=== PATIENT | female | born 1945 | race Caucasian/White ===

== ENCOUNTER 2020-05-10 13:30 | Inpatient (IN) | payer MEDICARE, BC ==
[2020-05-10] MEDS ORDERED: oxyCODONE 5 MG Tab PO PRN (15:00)
[2020-05-10] MEDS ORDERED: Cetirizine 10 MG Tab PO PRN (15:00)
--- NOTE | 2020-05-10 15:11 | PCM.HP.2 ---
H&P History of Present Illness - General Date of Service: 05/10/20 Admit Problem/Dx: Admission Diagnosis/Problem Admission Diagnosis/Problem Carcinoma of duodenum Source of Information: Patient, Family, Old Records History Limitations: Reports: No Limitations - History of Present Illness Initial Comments - Free Text/Narative: Vale is admitted to [facility] on 05/10/2020 after a hospitalization on [place] from 04/26 - 05/10 after a whipple surgery. She is admitted today for rehabilitation. Per Vale, she was in her usual state of health until a few months ago when her hemoglobin dripped from "11 to 7 in a month". She had no obvious source of bleeding. She underwent colonoscopy and upper GI endoscopy as well as capsule endoscopy. She was found to have a duodenal polyp and was scheduled for surgery on 04/26 at [facility] in [place] for removal. During the operation for the polypectomy they noted that she had a duodenal mass that had spread to the head fo the pancreas, frozen section was done on this and was positive for adenocarcinoma and so they spoke to her and it was decided to proceed with a pancreaticoduodenectomy (Whipple procedure). At the time of surgery they also placed a PEG tube for feeding. Reportedly she had some respiratory distress on 04/30 and spent 04/30 - 05/03 in the ICU although did not require intubation. She is no longer requiring tube feeding. She has [address] 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 Prior to this her PMH includes cataracts, cervical radiculopathy and spondylosis s/p cervical fusion, glaucoma, heart murmur, HTN, hyperlipidemia and environmental allergies. Past surgical history includes carpal tunnel release, cataract extraction, cervical fusion, cholecystectomy, hysterectomy, and tubal ligation. 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 They have 3 children and 5 grandchildren. Vale is the only surviving sibling, she had 4 siblings who have all . Abdomen Pain Score (Numeric/FACES): 6 - Related Data Allergies/Adverse Reactions: Allergies Allergy/AdvReac Type Severity Reaction Status Date / Time codeine Allergy Nausea and Verified 05/10/20 13:40 Vomiting Sulfa (Sulfonamide Allergy Hives Verified 05/10/20 13:40 Antibiotics) Home Medications: Home Meds Bimatoprost [LUMIGAN 0.01% Ophth Soln] 1 drop EYEBOTH BEDTIME 05/10/20 [History] Calcium Carbonate/Vitamin D3 [Calcium 600 + D3 Softgel] 1 each PO BIDMEALS 05/10/20 [History] Cetirizine [ZyrTEC] 10 mg PO DAILY PRN 05/10/20 [History] Cholecalciferol (Vitamin D3) [Vitamin D3] 2,000 unit PO DAILY 05/10/20 [History] Docusate Sodium [Colace] 100 mg PO DAILY 05/10/20 [History] Ferrous Sulfate [Feosol] 325 mg PO BID 05/10/20 [History] Losartan/Hydrochlorothiazide [Losartan-HCTZ 50-12.5 MG] 1 tab PO DAILY 05/10/20 [History] Metoprolol Succinate [Toprol XL] 25 mg PO DAILY 05/10/20 [History] Multivitamin [Multivitamins] 1 tab PO BID 05/10/20 [History] Omeprazole 40 mg PO DAILY 05/10/20 [History] atorvaSTATin [Lipitor] 10 mg PO BEDTIME 05/10/20 [History] oxyCODONE 5 mg PO Q6HR PRN 05/10/20 [History] Past Medical History HEENT History: Reports: Glaucoma, Impaired Vision Cardiovascular History: Reports: Heart Murmur, Hypertension Respiratory History: Reports: Intubation, Previous Gastrointestinal History: Reports: Cholelithiasis, Diverticulosis, GERD, GI Bleed, Hemorrhoids, Hiatal Hernia Genitourinary History: Reports: None [employer] History: Reports: Musculoskeletal History: Reports: None Neurological History: Reports: None Psychiatric History: Reports: None Endocrine/Metabolic History: Reports: None Hematologic History: Reports: Bleeding Disorder Oncologic (Cancer) History: Reports: Other (See Below) Other Oncologic History: duodonum, small intenstine, stomach, pancreas Dermatologic History: Reports: None - Infectious Disease History Infectious Disease History: Reports: Chicken Pox, Mumps - Past Surgical History HEENT Surgical History: Reports: None Cardiovascular Surgical History: Reports: None Respiratory Surgical History: Reports: None GI Surgical History: Reports: Cholecystectomy, Colonoscopy, EGD, Polypectomy Female Surgical History: Reports: Hysterectomy, Salpingo-Oophorectomy, Tubal Ligation Endocrine Surgical History: Reports: None Neurological Surgical History: Reports: C-Spine Musculoskeletal Surgical History: Reports: Carpal Tunnel Oncologic Surgical History: Reports: None Dermatological Surgical History: Reports: None Social & Family History - Family History Family Medical History: Noncontributory - Tobacco Use Smoking Status *Q: Never Smoker Second Hand Smoke Exposure: No - Caffeine Use Caffeine Use: Reports: Coffee, Soda, Tea - Recreational Drug Use Recreational Drug Use: No H&P Review of Systems - Review of Systems: Review Of Systems: Comprehensive ROS is negative, except as noted in HPI. Exam - Exam Exam: See Below - Vital Signs Vital Signs: Last Vital Signs Temp 98.3 F 05/10/20 13:40 Pulse 80 05/10/20 13:40 Resp 16 05/10/20 13:40 BP 144/79 H 05/10/20 13:40 Pulse Ox 98 05/10/20 13:40 Weight: 161 lb - Exam General: Alert, Oriented, Cooperative HEENT: Conjunctiva Clear Neck: Supple Lungs: Clear to Auscultation, Normal Respiratory Effort Cardiovascular: Regular Rate, Regular Rhythm, Systolic Murmur GI/Abdominal Exam: Normal Bowel Sounds, Other (Vertical camila, nursing counted 46, no evidence of infection. She has a PEG tube in place, dressing C/D/I, two drains in place.) Extremities: Normal Inspection, No Pedal Edema Sepsis Event Note - Evaluation Sepsis Screening Result: No Definite Risk - Focused Exam Vital Signs: Vital Signs Temp Pulse Resp BP Pulse Ox 05/10/20 13:40 98.3 F 80 16 144/79 H 98 Date Exam was Performed: 05/10/20 Time Exam was Performed: 15:15 - Problem List (1) Anemia SNOMED Code(s): 479571460 ICD Code: D64.9 - ANEMIA, UNSPECIFIED Status: Acute Current Visit: Yes (2) Acid reflux SNOMED Code(s): 917469046 ICD Code: K21.9 - GASTRO-ESOPHAGEAL REFLUX DISEASE WITHOUT ESOPHAGITIS Status: Acute Current Visit: Yes (3) Hypertension SNOMED Code(s): 68743478 ICD Code: I10 - ESSENTIAL (PRIMARY) HYPERTENSION Status: Acute Current Visit: Yes (4) Hyperlipidemia SNOMED Code(s): 74400882 ICD Code: E78.5 - HYPERLIPIDEMIA, UNSPECIFIED Status: Acute Current Visit: Yes (5) Glaucoma SNOMED Code(s): 29123418 ICD Code: H40.9 - UNSPECIFIED GLAUCOMA Status: Acute Current Visit: Yes (6) Constipation SNOMED Code(s): 34748896 ICD Code: K59.00 - CONSTIPATION, UNSPECIFIED Status: Acute Current Visit: Yes (7) Pain SNOMED Code(s): 35612294 ICD Code: R52 - PAIN, UNSPECIFIED Status: Acute Current Visit: Yes (8) Physical deconditioning SNOMED Code(s): 23279068440384 ICD Code: R53.81 - OTHER MALAISE Status: Acute Current Visit: Yes Problem List Initiated/Reviewed/Updated: Yes Orders Last 24hrs: Active Orders 24 hr Category Date Time Status Patient Status [ADT] Routine ADT 05/10/20 14:57 Ordered Height and Weight [RC] We@0700 Care 05/10/20 13:30 Active Intake and Output [RC] QSHIFT Care 05/10/20 13:30 Active Oxygen Therapy [RC] PRN Care 05/10/20 13:19 Active Oxygen Therapy [RC] PRN Care 05/10/20 14:57 Ordered Up With Assistance [RC] ASDIRECTED Care 05/10/20 13:29 Active VTE/DVT Education [RC] PER UNIT ROUTINE Care 05/10/20 13:19 Active VTE/DVT Education [RC] PER UNIT ROUTINE Care 05/10/20 14:57 Ordered Vital Signs [RC] 0700,1900 Care 05/10/20 13:19 Active Vital Signs [RC] Q4H Care 05/10/20 14:57 Ordered Consult to Case Management/Linoleum Layer [CONS] Cons 05/10/20 13:29 Active Routine PT Evaluation and Treatment [CONS] Routine Cons 05/10/20 13:29 Active Regular Diet [DIET] Diet 05/10/20 Dinner Active CBC WITH AUTO DIFF [HEME] AM Lab 05/12/20 05:11 Ordered COMPREHENSIVE METABOLIC PN,CMP [CHEM] AM Lab 05/12/20 05:11 Ordered Bimatoprost [LUMIGAN 0.01% Ophth Soln] Med 05/10/20 21:00 Ordered 1 drop EYEBOTH BEDTIME Calcium Carbonate/Vitamin D3 [Calcium 600 + Vit D 400 Med 05/10/20 18:00 Ordered Softgl] 1 each PO BIDMEALS Cetirizine [ZyrTEC] Med 05/10/20 15:00 Ordered 10 mg PO DAILY PRN Cholecalciferol (Vitamin D3) [Vitamin D3] Med 05/11/20 09:00 Ordered 2,000 unit PO DAILY Docusate Sodium [Colace] Med 05/11/20 09:00 Ordered 100 mg PO DAILY Enoxaparin [Lovenox] Med 05/11/20 09:00 Ordered 40 mg SUBCUT DAILY Ferrous Sulfate Med 05/10/20 21:00 Ordered 325 mg PO BID Losartan/Hydrochlorothiazide Med 05/11/20 09:00 Ordered 1 tab PO DAILY Metoprolol Succinate [Toprol XL] Med 05/11/20 09:00 Ordered 25 mg PO DAILY Multivitamin [Multivitamins] Med 05/10/20 21:00 Ordered 1 tab PO BID Omeprazole [Omeprazole] Med 05/11/20 09:00 Ordered 40 mg PO DAILY atorvaSTATin [Lipitor] Med 05/10/20 21:00 Ordered 10 mg PO BEDTIME oxyCODONE Med 05/10/20 15:00 Ordered 5 mg PO Q6HR PRN Resuscitation Status Routine Resus Stat 05/10/20 13:18 Ordered Medication Orders Atorvastatin Calcium (Lipitor) 10 mg PO BEDTIME [facility] Cetirizine HCl (Zyrtec) 10 mg PO DAILY PRN PRN Reason: Allergies Docusate Sodium (Colace) 100 mg PO DAILY [facility] Enoxaparin Sodium (Lovenox) 40 mg SUBCUT DAILY [facility] Ferrous Sulfate (Ferrous Sulfate) 325 mg PO BID [facility] Metoprolol Succinate (Toprol Xl) 25 mg PO DAILY [facility] Non-Formulary Medication (Bimatoprost [Lumigan 0.01% [facility]]) 1 drop EYEBOTH BEDTIME [facility] Non-Formulary Medication (Calcium Carbonate/Vitamin D3 [Calcium 600 + Vit D 400 Softgl]) 1 each PO BIDMEALS [facility] Non-Formulary Medication (Cholecalciferol (Vitamin D3) [Vitamin D3]) 2,000 unit PO DAILY [facility] Non-Formulary Medication (Losartan/Hydrochlorothiazide) 1 tab PO DAILY [facility] Non-Formulary Medication (Multivitamin [Multivitamins]) 1 tab PO BID [facility] Non-Formulary Medication (Omeprazole [Omeprazole]) 40 mg PO DAILY [facility] Oxycodone HCl (Oxycodone) 5 mg PO Q6HR PRN PRN Reason: Pain Assessment/Plan Comment:: Admission Diagnoses and Plan: Duodenal Cancer IIb T4, 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 Wong at [facility] in [place] Drains not able to be removed per patient "until there is no drainage for 2 consecutive days Deconditioning secondary to above PT eval and treat Pain secondary to #1 Oxycodone 5 mg PO q 6 hours scheduled Anemia secondary to blood loss as well as iron deficiency Ferrous Sulfate BID Constipation secondary to narcotic use Daily colace Senna PRN Secondary Diagnoses and Plan: HTN Continue Losartan/HCTZ Continue metoprolol Hyperlipidemia Continue atorvastatin Seasonal allergies Continue Zyrtec Glaucoma Continue Bimatoprost Acid Reflux Continue omeprazole DVT prophylaxis: Ambulation, enoxaparin 40 mg subcut daily Stress ulcer prophylaxis: Continue home omeprazole Regular Diet as tolerated
[2020-05-10] MEDS ORDERED: oxyCODONE 5 MG Tab PO ONE (18:24)
[2020-05-10] MEDS: Ferrous Sulfate 325 MG Tab PO SCH (21:13)
[2020-05-10] MEDS: Multivitamins with Minerals/Iron/Folic Acid/Lycopene Tab PO SCH (21:13)
[2020-05-10] MEDS: atorvaSTATin 10 MG Tab PO SCH (21:13)
[2020-05-10] MEDS: Calcium Carbonate 600 MG Tab PO SCH (21:13)
[2020-05-10] MEDS: Acetaminophen 325 MG Tab PO PRN (21:14)
[2020-05-10] MEDS: oxyCODONE 5 MG Tab PO PRN (22:44)
[2020-05-11] MEDS: Menthol 7.6 MG Sugar Free Lozenge PO PRN ×2 (00:47→22:03)
[2020-05-11] MEDS: oxyCODONE 5 MG Tab PO PRN ×3 (05:32→18:54)
[2020-05-11] MEDS: Cholecalciferol (Vitamin D3) 25 MCG Tab PO SCH (08:44)
[2020-05-11] MEDS: Enoxaparin 40 MG/0.4 ML Syringe SUBCUT SCH (08:44)
[2020-05-11] MEDS: Losartan 50 MG Tab PO SCH (08:45)
[2020-05-11] MEDS: Omeprazole 20 MG Cap.CR PO SCH (08:45)
[2020-05-11] MEDS: Hydrochlorothiazide 12.5 MG Cap PO SCH (08:45)
[2020-05-11] MEDS: Calcium Carbonate 600 MG Tab PO SCH ×2 (08:45→21:28)
[2020-05-11] MEDS: Metoprolol Succinate 25 MG Tab.ER PO SCH (08:45)
[2020-05-11] MEDS: Ferrous Sulfate 325 MG Tab PO SCH ×2 (08:45→21:28)
[2020-05-11] MEDS: Multivitamins with Minerals/Iron/Folic Acid/Lycopene Tab PO SCH ×2 (08:46→21:29)
[2020-05-11] MEDS: Docusate Sodium 100 MG Cap PO SCH (08:46)
[2020-05-11] MEDS: atorvaSTATin 10 MG Tab PO SCH (21:28)
[2020-05-11] MEDS: Latanoprost 0.005% Ophth Soln 2.5 ML Bottle EYEBOTH SCH (21:30)
[2020-05-12] MEDS: oxyCODONE 5 MG Tab PO PRN ×5 (01:12→22:40)
[2020-05-12] MEDS ORDERED: Bisacodyl 10 MG Supp RECTAL PRN (06:26)
[2020-05-12] MEDS: Cholecalciferol (Vitamin D3) 25 MCG Tab PO SCH (08:10)
[2020-05-12] MEDS: Enoxaparin 40 MG/0.4 ML Syringe SUBCUT SCH (08:10)
[2020-05-12] MEDS: Losartan 50 MG Tab PO SCH (08:10)
[2020-05-12] MEDS: Multivitamins with Minerals/Iron/Folic Acid/Lycopene Tab PO SCH ×2 (08:10→21:16)
[2020-05-12] MEDS: Omeprazole 20 MG Cap.CR PO SCH (08:11)
[2020-05-12] MEDS: Docusate Sodium 100 MG Cap PO SCH (08:11)
[2020-05-12] MEDS: Calcium Carbonate 600 MG Tab PO SCH ×2 (08:12→21:13)
[2020-05-12] MEDS: Ferrous Sulfate 325 MG Tab PO SCH ×2 (08:12→21:13)
[2020-05-12] MEDS: Metoprolol Succinate 25 MG Tab.ER PO SCH (08:12)
[2020-05-12] MEDS: Hydrochlorothiazide 12.5 MG Cap PO SCH (08:12)
[2020-05-12 08:36] LABS: ANION GAP 11.5 mmol/L (5-15); CHLORIDE,CL 100 mmol/L (98-115); SODIUM,NA 136 mmol/L (136-145)
[2020-05-12] MEDS ORDERED: Losartan 50 MG Tab PO SCH ×2 (09:15→10:00)
[2020-05-12] MEDS ORDERED: Hydrochlorothiazide 12.5 MG Cap PO SCH (10:00)
[2020-05-12] MEDS: Naloxegol Oxalate 25 MG Tab PO SCH (10:29)
--- NOTE | 2020-05-12 11:46 | PCM.PN ---
- General Info Date of Service: 05/12/20 Admission Dx/Problem (Free Text): Admission Diagnosis/Problem Admission Diagnosis/Problem Carcinoma of duodenum - Review of Systems Systems Review Comment:: Vale is seen today on swing[facility] rounds. She was admitted on 05/10 for ongoing rehabilitation after a Whipple procedure, done 04/26 due duodenal cancer with spread to the head of the pancreas. She has oxycodone 5-10 mg PO q 6 hours scheduled but 5 "just doesn't cut it". She also had not had a bowel movement since 05/07 and and had a suppository with some results today. She overall feels she is doing pretty well. Per nursing report she had increased output from her drains last evening. Her BP has been running high, 140-170's systolic. - Patient Data Vitals - Most Recent: Last Vital Signs Temp 98.2 F 05/12/20 06:49 Pulse 99 05/12/20 08:12 Resp 20 05/12/20 06:49 BP 132/71 05/12/20 10:29 Pulse Ox 97 05/12/20 06:49 Weight - Most Recent: 161 lb I&O - Last 24 Hours: Intake & Output 05/11/20 05/12/20 05/12/20 22:59 06:59 14:59 Intake Total 1700 120 Output Total 1023 1565 Balance 677 -1445 Lab Results Last 24 Hours: Laboratory Results - last 24 hr 05/12/20 05/12/20 Range/Units 07:17 07:17 WBC 11.95 H (5.00-10.00) 10^3/uL RBC 3.72 L (3.80-5.50) 10^6/uL Hgb 10.3 L (12.0-16.0) g/dL Hct 32.1 L (37.0-47.0) % MCV 86.3 (82.0-92.0) fL MCH 27.7 (27.0-31.0) pg MCHC 32.1 (32.0-36.0) g/dL RDW 14.8 H (11.5-14.5) % Plt Count 480 H (150-400) 10^3/uL MPV 9.9 (7.4-10.4) fL Immature Gran % (Auto) 0.7 (0.0-5.0) % Neut % (Auto) 81.6 H (50.0-70.0) % Lymph % (Auto) 7.7 L (20.0-40.0) % Charlton % (Auto) 8.5 H (2.0-8.0) % Eos % (Auto) 1.1 (1.0-3.0) % Baso % (Auto) 0.4 (0.0-1.0) % Neut # (Auto) 9.76 H (2.50-7.00) 10^3/uL Lymph # (Auto) 0.92 L (1.00-4.00) 10^3/uL Charlton # (Auto) 1.01 H (0.10-0.80) 10^3/uL Eos # (Auto) 0.13 (0.10-0.30) 10^3/uL Baso # (Auto) 0.05 (0.00-0.10) 10^3/uL Immature Gran # (Auto) 0.08 (0.00-0.50) 10^3/uL Sodium 136 (136-145) mmol/L Potassium 3.5 (3.3-5.3) mmol/L Chloride 100 (98-115) mmol/L Carbon Dioxide 28.0 (21.0-32.0) mmol/L Anion Gap 11.5 (5-15) mmol/L BUN 7 (6-25) mg/dL Creatinine 0.64 (0.51-1.17) mg/dL Est Cr Clr Drug Dosing 62.84 mL/min Estimated GFR (MDRD) > 60 mL/min Glucose 131 H (75 - 99) mg/dL Calcium 8.4 L (8.7-10.3) mg/dL Total Bilirubin 0.2 (0.2-1.0) mg/dL AST 14 L (15-37) U/L ALT 27 (12-78) U/L Alkaline Phosphatase 104 (46-116) IU/L Total Protein 5.8 L (6.4-8.2) g/dL Albumin 2.02 L (3.00-4.80) g/dL Deonte Results Last 24 Hours: Microbiology 05/10/20 21:30 Gram Stain - Final Other 05/10/20 21:20 Gram Stain - Final Wound - Incision 05/10/20 21:25 Gram Stain - Final Wound - Abdomen Med Orders - Current: Current Medications Acetaminophen (Tylenol) 650 mg PO Q4H PRN PRN Reason: Pain Last Admin: 05/10/20 21:14 Dose: 650 mg Documented by: Atorvastatin Calcium (Lipitor) 10 mg PO BEDTIME [facility] Last Admin: 05/11/20 21:28 Dose: 10 mg Documented by: Bisacodyl (Dulcolax) 10 mg RECTAL DAILY PRN PRN Reason: Constipation Last Admin: 05/12/20 07:31 Dose: 10 mg Documented by: Calcium Carbonate/Glycine (Calcium Carbonate) 600 mg PO BID [facility] Last Admin: 05/12/20 08:12 Dose: 600 mg Documented by: Cetirizine HCl (Zyrtec) 10 mg PO DAILY PRN PRN Reason: Allergies Cholecalciferol (Vitamin D3) 50 mcg PO DAILY [facility] Last Admin: 05/12/20 08:10 Dose: 50 mcg Documented by: Docusate Sodium (Colace) 100 mg PO DAILY [facility] Last Admin: 05/12/20 08:11 Dose: 100 mg Documented by: Enoxaparin Sodium (Lovenox) 40 mg SUBCUT DAILY [facility] Last Admin: 05/12/20 08:10 Dose: 40 mg Documented by: Ferrous Sulfate (Ferrous Sulfate) 325 mg PO BID [facility] Last Admin: 05/12/20 08:12 Dose: 325 mg Documented by: Hydrochlorothiazide (Hydrochlorothiazide) 25 mg PO DAILY [facility] Latanoprost (Xalatan 0.005% Ophth Soln) 0 ml EYEBOTH BEDTIME [facility] Last Admin: 05/11/20 21:30 Dose: 1 drop Documented by: Losartan Potassium (Cozaar) 100 mg PO DAILY [facility] Menthol (Rembrandt Sugar Free) 1 tavares PO ASDIRECTED PRN PRN Reason: Sore Throat Last Admin: 05/11/20 22:03 Dose: 1 tavares Documented by: Metoprolol Succinate (Toprol Xl) 25 mg PO DAILY [facility] Last Admin: 05/12/20 08:12 Dose: 25 mg Documented by: Multivitamins/Minerals (Centrum) 1 tab PO BID [facility] Last Admin: 05/12/20 08:10 Dose: 1 tab Documented by: Naloxegol (Movantik) 25 mg PO DAILY [facility] Last Admin: 05/12/20 10:29 Dose: 25 mg Documented by: Omeprazole (Omeprazole) 40 mg PO DAILY [facility] Last Admin: 05/12/20 08:11 Dose: 40 mg Documented by: Oxycodone HCl (Oxycodone) 5 - 10 mg PO Q6H PRN PRN Reason: Pain Last Admin: 05/12/20 08:48 Dose: 5 mg Documented by: Senna/Docusate Sodium (Senna Plus) 1 tab PO DAILY PRN PRN Reason: Constipation Last Admin: 05/11/20 21:28 Dose: 1 tab Documented by: Discontinued Medications Hydrochlorothiazide (Hydrochlorothiazide) 12.5 mg PO DAILY [facility] Last Admin: 05/12/20 08:12 Dose: 12.5 mg Documented by: Hydrochlorothiazide (Hydrochlorothiazide) 12.5 mg PO ONETIME [facility] Stop: 05/12/20 11:00 Last Admin: 05/12/20 10:29 Dose: 12.5 mg Documented by: Losartan Potassium (Cozaar) 50 mg PO DAILY [facility] Last Admin: 05/12/20 08:10 Dose: 50 mg Documented by: Losartan Potassium (Cozaar) 100 mg PO DAILY [facility] Last Admin: 05/12/20 10:02 Dose: Not Given Documented by: Losartan Potassium (Cozaar) 50 mg PO ONETIME [facility] Stop: 05/12/20 11:00 Last Admin: 05/12/20 10:29 Dose: 50 mg Documented by: Oxycodone HCl (Oxycodone) 5 mg PO Q6HR PRN PRN Reason: Pain Last Admin: 05/10/20 15:36 Dose: 5 mg Documented by: Oxycodone HCl (Oxycodone) 5 mg PO ONETIME ONE Stop: 05/10/20 18:25 Last Admin: 05/10/20 18:41 Dose: 5 mg Documented by: - Exam General: Alert, Oriented, Cooperative, No Acute Distress Lungs: Clear to Auscultation Cardiovascular: Regular Rate, Regular Rhythm, No Murmurs GI/Abdominal Exam: Normal Bowel Sounds, Other (Drains in place. G-J tube in place. ) Extremities: Normal Inspection, No Pedal Edema Wound/Incisions: Healing Well, No Drainage Sepsis Event Note - Evaluation Sepsis Screening Result: No Definite Risk - Focused Exam Vital Signs: Vital Signs Temp Pulse Pulse Resp BP BP Pulse Ox 05/12/20 10:29 132/71 05/12/20 08:12 99 149/86 H 05/12/20 08:10 149/86 H 05/12/20 06:49 98.2 F 82 20 168/86 H 97 Date Exam was Performed: 05/12/20 Time Exam was Performed: 11:38 - Problem List & Annotations (1) Anemia SNOMED Code(s): 602564480 Code(s): D64.9 - ANEMIA, UNSPECIFIED Status: Acute Current Visit: Yes (2) Acid reflux SNOMED Code(s): 403706296 Code(s): K21.9 - GASTRO-ESOPHAGEAL REFLUX DISEASE WITHOUT ESOPHAGITIS Status: Acute Current Visit: Yes (3) Hypertension SNOMED Code(s): 65887426 Code(s): I10 - ESSENTIAL (PRIMARY) HYPERTENSION Status: Acute Current Visit: Yes (4) Hyperlipidemia SNOMED Code(s): 30886105 Code(s): E78.5 - HYPERLIPIDEMIA, UNSPECIFIED Status: Acute Current Visit: Yes (5) Glaucoma SNOMED Code(s): 99494060 Code(s): H40.9 - UNSPECIFIED GLAUCOMA Status: Acute Current Visit: Yes (6) Constipation SNOMED Code(s): 62404038 Code(s): K59.00 - CONSTIPATION, UNSPECIFIED Status: Acute Current Visit: Yes (7) Pain SNOMED Code(s): 34059150 Code(s): R52 - PAIN, UNSPECIFIED Status: Acute Current Visit: Yes (8) Physical deconditioning SNOMED Code(s): 12811992471031 Code(s): R53.81 - OTHER MALAISE Status: Acute Current Visit: Yes - Problem List Review Problem List Initiated/Reviewed/Updated: Yes - My Orders Last 24 Hours: My Active Orders 05/11/20 21:00 Latanoprost [Xalatan 0.005% Ophth Soln] 0 ml EYEBOTH BEDTIME 05/12/20 06:26 bisacodyL [Dulcolax] 10 mg RECTAL DAILY PRN 05/12/20 09:15 Naloxegol Oxalate [Movantik] 25 mg PO DAILY 05/12/20 11:36 Communication Order [RC] DAILY 05/13/20 09:00 Losartan [Cozaar] 100 mg PO DAILY hydroCHLOROthiazide 25 mg PO DAILY - Plan Plan:: Admission Diagnoses and Plan: Duodenal Cancer IIb T4, 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 Wong at [facility] in [place] Drains not able to be removed per patient "until there is no drainage for 2 consecutive days Incision is healing nicely, camila have been in place for 17 days, will remove today (05/12) This serves as an order for home health referral. Vale is homebound due to post-surgical status. She has a need for [facility] to help manage drains and G-J tube as well as monitor incision site and also monitor blood pressure as changes to her home regimen were made during hospitalization. Deconditioning secondary to above PT eval and treat Pain secondary to #1 Oxycodone 5-10 mg PO q 6 hours scheduled Anemia secondary to blood loss as well as iron deficiency Ferrous Sulfate BID Constipation secondary to narcotic use Daily colace Senna PRN Will add Movantik 25 mg PO daily today (05/12/2020) Secondary Diagnoses and Plan: HTN Continue Losartan/HCTZ, will increase from 50/12.5 to 100/25 PO daily (05/12/2020) Continue metoprolol Hyperlipidemia Continue atorvastatin Seasonal allergies Continue Zyrtec Glaucoma Continue Bimatoprost Acid Reflux Continue omeprazole DVT prophylaxis: Ambulation, enoxaparin 40 mg subcut daily Stress ulcer prophylaxis: Continue home omeprazole Regular Diet as tolerated Anticipate discharge to home with home health on 05/15/2020
[2020-05-12] MEDS: Acetaminophen 325 MG Tab PO PRN ×2 (13:55→21:14)
[2020-05-12] MEDS: atorvaSTATin 10 MG Tab PO SCH (21:14)
[2020-05-12] MEDS: Latanoprost 0.005% Ophth Soln 2.5 ML Bottle EYEBOTH SCH (21:18)
[2020-05-13] MEDS: oxyCODONE 5 MG Tab PO PRN ×5 (05:02→23:21)
[2020-05-13] MEDS: Calcium Carbonate 600 MG Tab PO SCH ×3 (08:22→21:04)
[2020-05-13] MEDS: Cholecalciferol (Vitamin D3) 25 MCG Tab PO SCH (08:22)
[2020-05-13] MEDS: Omeprazole 20 MG Cap.CR PO SCH (08:23)
[2020-05-13] MEDS: Ferrous Sulfate 325 MG Tab PO SCH ×3 (08:23→21:05)
[2020-05-13] MEDS: Docusate Sodium 100 MG Cap PO SCH (08:24)
[2020-05-13] MEDS: Metoprolol Succinate 25 MG Tab.ER PO SCH (08:25)
[2020-05-13] MEDS: Losartan 50 MG Tab PO SCH (08:25)
[2020-05-13] MEDS: Hydrochlorothiazide 25 MG Tab PO SCH (08:25)
[2020-05-13] MEDS: Multivitamins with Minerals/Iron/Folic Acid/Lycopene Tab PO SCH ×3 (08:26→21:04)
[2020-05-13] MEDS: Naloxegol Oxalate 25 MG Tab PO SCH (08:26)
[2020-05-13] MEDS: Enoxaparin 40 MG/0.4 ML Syringe SUBCUT SCH (08:26)
[2020-05-13] MEDS: Acetaminophen 325 MG Tab PO PRN (11:44)
[2020-05-13] MEDS: atorvaSTATin 10 MG Tab PO SCH ×2 (20:30→21:05)
[2020-05-13] MEDS: Latanoprost 0.005% Ophth Soln 2.5 ML Bottle EYEBOTH SCH (21:08)
[2020-05-13] MEDS ORDERED: hydrALAZINE 10 MG Tab PO ONE (21:56)
[2020-05-14] MEDS: Acetaminophen 325 MG Tab PO PRN ×2 (01:55→18:03)
[2020-05-14] MEDS ORDERED: Metoprolol Succinate 25 MG Tab.ER PO ONE (02:26)
[2020-05-14] MEDS: oxyCODONE 5 MG Tab PO PRN ×4 (04:37→21:00)
[2020-05-14] MEDS: Naloxegol Oxalate 25 MG Tab PO SCH (08:06)
[2020-05-14] MEDS: Hydrochlorothiazide 25 MG Tab PO SCH (08:06)
[2020-05-14] MEDS: Omeprazole 20 MG Cap.CR PO SCH (08:07)
[2020-05-14] MEDS: Metoprolol Succinate 25 MG Tab.ER PO SCH (08:07)
[2020-05-14] MEDS: Losartan 50 MG Tab PO SCH (08:08)
[2020-05-14] MEDS: Cholecalciferol (Vitamin D3) 25 MCG Tab PO SCH (08:08)
[2020-05-14] MEDS: Ferrous Sulfate 325 MG Tab PO SCH ×2 (08:09→20:45)
[2020-05-14] MEDS: Calcium Carbonate 600 MG Tab PO SCH ×2 (08:09→20:45)
[2020-05-14] MEDS: Multivitamins with Minerals/Iron/Folic Acid/Lycopene Tab PO SCH ×2 (08:09→20:45)
[2020-05-14] MEDS: Docusate Sodium 100 MG Cap PO SCH (08:09)
[2020-05-14] MEDS: Enoxaparin 40 MG/0.4 ML Syringe SUBCUT SCH (08:13)
[2020-05-14] MEDS: atorvaSTATin 10 MG Tab PO SCH (20:45)
[2020-05-14] MEDS: Latanoprost 0.005% Ophth Soln 2.5 ML Bottle EYEBOTH SCH (20:46)
[2020-05-15] MEDS: oxyCODONE 5 MG Tab PO PRN (01:57)
[2020-05-15] MEDS: Multivitamins with Minerals/Iron/Folic Acid/Lycopene Tab PO SCH ×2 (08:13→08:55)
[2020-05-15] MEDS: Omeprazole 20 MG Cap.CR PO SCH (08:14)
[2020-05-15] MEDS: Calcium Carbonate 600 MG Tab PO SCH ×2 (08:14→08:54)
[2020-05-15] MEDS: Naloxegol Oxalate 25 MG Tab PO SCH (08:14)
[2020-05-15] MEDS: Ferrous Sulfate 325 MG Tab PO SCH (08:14)
[2020-05-15] MEDS: Docusate Sodium 100 MG Cap PO SCH (08:15)
[2020-05-15] MEDS: Cholecalciferol (Vitamin D3) 25 MCG Tab PO SCH (08:15)
[2020-05-15] MEDS: Losartan 50 MG Tab PO SCH (08:18)
[2020-05-15] MEDS: Hydrochlorothiazide 25 MG Tab PO SCH (08:18)
[2020-05-15] MEDS ORDERED: Metoprolol Succinate 50 MG Tab.ER PO SCH (09:00)
--- NOTE | 2020-05-15 09:56 | PCM.DCSUM1 ---
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 Wong at [facility] in [place] Drains not able to be removed per patient "until there is no drainage for 2 consecutive days Incision is healing nicely, camila have been in place for 17 days and were removed on 05/12/2020 She has been instructed on care of her G-J tube for daily flushes of free water and she has been instructed on emptying her drains This serves as an order for home health referral. Vale is homebound due to post-surgical status. She has a need for senior living to help manage drains and G-J tube as well as monitor incision site and also monitor blood pressure as changes to her home regimen were made during hospitalization. Deconditioning secondary to above She has improved since admission Pain secondary to #1 Oxycodone 5-10 mg PO q 6 hours scheduled Anemia secondary to blood loss as well as iron deficiency Ferrous Sulfate BID Constipation secondary to narcotic use Daily colace Senna PRN Will add Movantik 25 mg PO daily today (05/12/2020) Will discharge on this per patient request. Bruise RLQ abdomen Secondary enoxaparin use, dose was held on 05/15 Episodic Dysphagia [employer] evaluation today, recommended video swallow, she wants to wait to do this, recommend her PCP help coordinate this evaluation Diet as tolerated Secondary Diagnoses and Plan: HTN Continue Losartan/HCTZ, will increase from 50/12.5 to 100/25 PO daily (05/12/2020) Continue higher dosage at discharge. Continue metoprolol but at increased dose of 50 mg PO daily. Hyperlipidemia Continue atorvastatin Seasonal allergies Continue Zyrtec Glaucoma Continue Bimatoprost Acid Reflux Continue omeprazole New Medication at Discharge: Movantik 25 mg PO daily Medication Adjustments: Increase Losartan/HCTZ to 100/25 mg (previous dose 50/12.5 mg). Increase metoprolol to 50 mg PO daily (previous dose 25 mg daily). Recommended Testing as Outpatient: Video Swallow Study Hospital Summary: Vale was admitted to [facility] on 05/10/2020 after a hospitalization on [place] from 04/26 - 05/10 after a whipple surgery. Per Vale, she was in her usual state of health until a few months ago when her hemoglobin dripped from "11 to 7 in a month". She had no obvious source of bleeding. She underwent colonoscopy and upper GI endoscopy as well as capsule endoscopy. She was found to have a duodenal polyp and was scheduled for surgery on 04/26 at [facility] in [place] for removal. During the operation for the polypectomy they noted that she had a duodenal mass that had spread to the head fo the pancreas, frozen section was done on this and was positive for adenocarcinoma and so they spoke to her and it was decided to proceed with a pancreaticoduodenectomy (Whipple procedure). At the time of surgery they also placed a PEG tube for feeding. Reportedly she had some respiratory distress on 04/30 and spent 04/30 - 05/03 in the ICU although did not require intubation. She is no longer requiring tube feeding. She has [address] She is ambulatory, she was given the option of going home but she and her Garrett felt that it would be beneficial for her to have more care and so was admitted to [facility] before going home and hopefully soon, starting chemotherapy for what was diagnosed a duodenal cancer IIb T4 N0M0. Prior to this her PMH includes cataracts, cervical radiculopathy and spondylosis s/p cervical fusion, glaucoma, heart murmur, HTN, hyperlipidemia and environmental allergies. Past surgical history includes carpal tunnel release, cataract extraction, cervical fusion, cholecystectomy, hysterectomy, and tubal ligation. 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 They have 3 children and 5 grandchildren. Vale is the only surviving sibling, she had 4 siblings who have all . She progressed well during her hospital stay, still with drain output. She will be discharge to home with home health. She had an episode of difficulty swallowing and speech pathology was done on 05/15. Vale states this has happened to her in the past. Diagnosis: Stroke: No Modified Cortney Scale: Slight Disable;Unable to Carry Out Prev Act.Able to Look After Affairs Modified Hickman Scale Score: 2 - Discharge Data Discharge Date: 05/15/20 Discharge Disposition: Home, W Home Health Agency 06 Condition: Good - Referral to Home Health Date of Face to Face Encounter: 05/10/20 Reason for Homebound Status: Homebound secondary to recent major surgery. Primary Care Physician: Kristina Gates NP Skilled Need: long-term. - Discharge Diagnosis/Problem(s) (1) Anemia SNOMED Code(s): 229194269 ICD Code: D64.9 - ANEMIA, UNSPECIFIED Status: Acute (2) Acid reflux SNOMED Code(s): 114307776 ICD Code: K21.9 - GASTRO-ESOPHAGEAL REFLUX DISEASE WITHOUT ESOPHAGITIS Status: Acute (3) Hypertension SNOMED Code(s): 79429423 ICD Code: I10 - ESSENTIAL (PRIMARY) HYPERTENSION Status: Acute (4) Hyperlipidemia SNOMED Code(s): 71786409 ICD Code: E78.5 - HYPERLIPIDEMIA, UNSPECIFIED Status: Acute (5) Glaucoma SNOMED Code(s): 13899962 ICD Code: H40.9 - UNSPECIFIED GLAUCOMA Status: Acute (6) Constipation SNOMED Code(s): 85918070 ICD Code: K59.00 - CONSTIPATION, UNSPECIFIED Status: Acute (7) Pain SNOMED Code(s): 23223765 ICD Code: R52 - PAIN, UNSPECIFIED Status: Acute (8) Physical deconditioning SNOMED Code(s): 51429694735391 ICD Code: R53.81 - OTHER MALAISE Status: Acute - Patient Summary/Data Consults: Consultations 05/10/20 13:29 Consult to Case Management/Systems Designer [CONS] Routine PT Evaluation and Treatment [CONS] Routine 05/14/20 13:11 Consult to Speech Language Pathology [[employer] Evaluation and Treatment] [CONS] Routine Recommended Follow-up Testing/Procedures: Video Swallow Study, recommend her PCP help coordinate this evaluation at the location of her choice. - Patient Instructions Diet: Usual Diet as Tolerated Wound/Incision Care: Keep Operative Site/Wound Site Clean and Dry - Discharge Plan *PRESCRIPTION DRUG MONITORING PROGRAM REVIEWED*: Not Applicable *COPY OF PRESCRIPTION DRUG MONITORING REPORT IN PATIENT MICAELA: Not Applicable Prescriptions/Med Rec: Losartan [Cozaar] 100 mg PO DAILY #30 tablet hydroCHLOROthiazide [Hydrochlorothiazide] 25 mg PO DAILY #30 tablet Naloxegol Oxalate [Movantik] 25 mg PO DAILY #30 tablet oxyCODONE 5 - 10 mg PO Q6HR PRN #60 PRN Reason: Pain Metoprolol Succinate [Toprol XL 50mg] 50 mg PO DAILY #30 tab.er Home Medications: Home Meds Bimatoprost [LUMIGAN 0.01% Ophth Soln] 1 drop EYEBOTH BEDTIME 05/10/20 [History] Calcium Carbonate/Vitamin D3 [Calcium 600 + Vit D 400 Softgl] 1 each PO BIDMEALS 05/10/20 [History] Cetirizine [ZyrTEC] 10 mg PO DAILY PRN 05/10/20 [History] Cholecalciferol (Vitamin D3) [Vitamin D3] 2,000 unit PO DAILY 05/10/20 [History] Docusate Sodium [Colace] 100 mg PO DAILY 05/10/20 [History] Ferrous Sulfate [Feosol] 325 mg PO BID 05/10/20 [History] Multivitamin [Multivitamins] 1 tab PO BID 05/10/20 [History] Omeprazole 40 mg PO DAILY 05/10/20 [History] atorvaSTATin [Lipitor] 10 mg PO BEDTIME 05/10/20 [History] Acetaminophen [Tylenol] 650 mg PO Q4H PRN tablet 05/15/20 [Rx] Docusate Sodium/Sennosides [Senna Plus] 1 tab PO DAILY PRN tablet 05/15/20 [Rx] Losartan [Cozaar] 100 mg PO DAILY #30 tablet 05/15/20 [Rx] Menthol [Flint Sugar Free] 1 tavares PO ASDIRECTED PRN tavares 05/15/20 [Rx] Metoprolol Succinate [Toprol XL 50mg] 50 mg PO DAILY #30 tab.er 05/15/20 [Rx] Naloxegol Oxalate [Movantik] 25 mg PO DAILY #30 tablet 05/15/20 [Rx] hydroCHLOROthiazide [Hydrochlorothiazide] 25 mg PO DAILY #30 tablet 05/15/20 [Rx] oxyCODONE 5 - 10 mg PO Q6HR PRN #60 05/15/20 [Rx] Referrals: [facility] [Outside] - Discharge Summary/Plan Comment DC Time >30 min.: Yes (Total discharge time was 47 minutes.) - General Info Date of Service: 05/15/20 Admission Dx/Problem (Free Text: Admission Diagnosis/Problem Admission Diagnosis/Problem Carcinoma of duodenum - Patient Data Vitals - Most Recent: Last Vital Signs Temp 97.0 F 05/15/20 06:58 Pulse 104 H 05/15/20 08:18 Resp 16 05/15/20 06:58 BP 142/92 H 05/15/20 08:18 Pulse Ox 95 05/15/20 06:58 Weight - Most Recent: 161 lb I&O - Last 24 hours: Intake & Output 05/14/20 05/15/20 05/15/20 22:59 06:59 14:59 Intake Total 1200 350 Output Total 1869 Balance -669 350 JETT Results - Last 24 hrs: Microbiology 05/10/20 21:30 Miscellaneous Reference Culture - Final Other Mesha Albicans Klebsiella Pneumonia Ss Pneumo Iso Consist W Cutaneous Juanita Gram Stain - Final Med Orders - Current: Current Medications Acetaminophen (Tylenol) 650 mg PO Q4H PRN PRN Reason: Pain Last Admin: 05/14/20 18:03 Dose: 650 mg Documented by: Atorvastatin Calcium (Lipitor) 10 mg PO BEDTIME [facility] Last Admin: 05/14/20 20:45 Dose: 10 mg Documented by: Bisacodyl (Dulcolax) 10 mg RECTAL DAILY PRN PRN Reason: Constipation Last Admin: 05/12/20 07:31 Dose: 10 mg Documented by: Calcium Carbonate/Glycine (Calcium Carbonate) 600 mg PO BID [facility] Last Admin: 05/15/20 08:54 Dose: Not Given Documented by: Cetirizine HCl (Zyrtec) 10 mg PO DAILY PRN PRN Reason: Allergies Cholecalciferol (Vitamin D3) 50 mcg PO DAILY [facility] Last Admin: 05/15/20 08:15 Dose: 50 mcg Documented by: Docusate Sodium (Colace) 100 mg PO DAILY [facility] Last Admin: 05/15/20 08:15 Dose: 100 mg Documented by: Enoxaparin Sodium (Lovenox) 40 mg SUBCUT DAILY [facility] Last Admin: 05/14/20 08:13 Dose: 40 mg Documented by: Ferrous Sulfate (Ferrous Sulfate) 325 mg PO BID [facility] Last Admin: 05/15/20 08:14 Dose: 325 mg Documented by: Hydrochlorothiazide (Hydrochlorothiazide) 25 mg PO DAILY [facility] Last Admin: 05/15/20 08:18 Dose: 25 mg Documented by: Latanoprost (Xalatan 0.005% Ophth Soln) 0 ml EYEBOTH BEDTIME [facility] Last Admin: 05/14/20 20:46 Dose: 1 drop Documented by: Losartan Potassium (Cozaar) 100 mg PO DAILY [facility] Last Admin: 05/15/20 08:18 Dose: 100 mg Documented by: Menthol (Flint Sugar Free) 1 tavares PO ASDIRECTED PRN PRN Reason: Sore Throat Last Admin: 05/11/20 22:03 Dose: 1 tavares Documented by: Metoprolol Succinate (Toprol Xl) 50 mg PO DAILY [facility] Last Admin: 05/15/20 08:18 Dose: 50 mg Documented by: Multivitamins/Minerals (Centrum) 1 tab PO BID [facility] Last Admin: 05/15/20 08:55 Dose: Not Given Documented by: Naloxegol (Movantik) 25 mg PO DAILY [facility] Last Admin: 05/15/20 08:14 Dose: 25 mg Documented by: Omeprazole (Omeprazole) 40 mg PO DAILY [facility] Last Admin: 05/15/20 08:14 Dose: 40 mg Documented by: Oxycodone HCl (Oxycodone) 5 - 10 mg PO Q6H PRN PRN Reason: Pain Last Admin: 05/15/20 01:57 Dose: 5 mg Documented by: Senna/Docusate Sodium (Senna Plus) 1 tab PO DAILY PRN PRN Reason: Constipation Last Admin: 05/11/20 21:28 Dose: 1 tab Documented by: Discontinued Medications Hydralazine HCl (Apresoline) 10 mg PO ONETIME ONE Stop: 05/13/20 21:57 Last Admin: 05/13/20 22:06 Dose: 10 mg Documented by: Hydrochlorothiazide (Hydrochlorothiazide) 12.5 mg PO DAILY [facility] Last Admin: 05/12/20 08:12 Dose: 12.5 mg Documented by: Hydrochlorothiazide (Hydrochlorothiazide) 12.5 mg PO ONETIME [facility] Stop: 05/12/20 11:00 Last Admin: 05/12/20 10:29 Dose: 12.5 mg Documented by: Losartan Potassium (Cozaar) 50 mg PO DAILY [facility] Last Admin: 05/12/20 08:10 Dose: 50 mg Documented by: Losartan Potassium (Cozaar) 100 mg PO DAILY [facility] Last Admin: 05/12/20 10:02 Dose: Not Given Documented by: Losartan Potassium (Cozaar) 50 mg PO ONETIME [facility] Stop: 05/12/20 11:00 Last Admin: 05/12/20 10:29 Dose: 50 mg Documented by: Metoprolol Succinate (Toprol Xl) 25 mg PO DAILY [facility] Last Admin: 05/14/20 08:07 Dose: 25 mg Documented by: Metoprolol Succinate (Toprol Xl) 25 mg PO ONETIME ONE Stop: 05/14/20 02:27 Last Admin: 05/14/20 02:33 Dose: 25 mg Documented by: Oxycodone HCl (Oxycodone) 5 mg PO Q6HR PRN PRN Reason: Pain Last Admin: 05/10/20 15:36 Dose: 5 mg Documented by: Oxycodone HCl (Oxycodone) 5 mg PO ONETIME ONE Stop: 05/10/20 18:25 Last Admin: 05/10/20 18:41 Dose: 5 mg Documented by: - Exam General: Reports: Alert, Oriented, Cooperative, No Acute Distress Lungs: Reports: Clear to Auscultation, Normal Respiratory Effort Cardiovascular: Reports: Regular Rate, Regular Rhythm, Murmurs (2/6 systolic murmur) GI/Abdominal Exam: Normal Bowel Sounds, Soft, Other (Drains in place, G-J tube in place, ecchymotic area on RLQ abdomen in ellipse shape)
== END 2020-05-15 12:45 | disposition home health service (06) | DRG 376 ==
LOC: KA.MS 13:30
PROVIDERS: ADMIT Internal Medicine; ATTEND Internal Medicine
DX: C17.0 Malignant neoplasm of duodenum (principal); D50.0 Iron deficiency anemia secondary to blood loss (chronic); K59.03 Drug induced constipation; T40.605A Adverse effect of unspecified narcotics, initial encounter; S30.1XXA Contusion of abdominal wall, initial encounter; R13.19 Other dysphagia; I10 Essential (primary) hypertension; E78.5 Hyperlipidemia, unspecified; K21.9 Gastro-esophageal reflux disease without esophagitis; J30.2 Other seasonal allergic rhinitis; H40.9 Unspecified glaucoma; M47.22 Other spondylosis with radiculopathy, cervical region; Z98.1 Arthrodesis status; Z93.1 Gastrostomy status; H54.7 Unspecified visual loss; G89.3 Neoplasm related pain (acute) (chronic); Z98.49 Cataract extraction status, unspecified eye; Z90.49 Acquired absence of other specified parts of digestive tract; Z90.710 Acquired absence of both cervix and uterus; Z98.51 Tubal ligation status; Z79.899 Other long term (current) drug therapy; Z88.5 Allergy status to narcotic agent; Z88.2 Allergy status to sulfonamides
CPT/HCPCS: 36415; 80053; 85025; 87070; 87077; 87147; 87186; 87205; 92526-GN; 92610-GN; 97110-GP; 97161-GP; A9270-GY; J1650